=== PATIENT | female | born 1960 | race Caucasian/White ===

== ENCOUNTER 2021-06-13 09:17 | Emergency (ER) | payer BC ==
[2021-06-13] MEDS ORDERED: HYDROmorphone 1 MG/ML Syringe IM ONE (09:56)
--- NOTE | 2021-06-13 10:02 | EDM.PDOC ---
ED HPI GENERAL MEDICAL PROBLEM - General Chief Complaint: Lower Extremity Injury/Pain Stated Complaint: Fall,Knee pain Time Seen by Provider: 06/13/21 09:40 Source of Information: Reports: Patient, Family History Limitations: Reports: No Limitations - History of Present Illness INITIAL COMMENTS - FREE TEXT/NARRATIVE: Patient slipped and fell getting out of the vehicle last night. unsure of how she fell, but hurt her right knee. Unable to get up. helped her and she attempted to stay for the holiday evening but pain was worse. Barely able to weight bear, used walked ( does not normally use) once got home. Took tylenol. swelling worse. no previous injury. no blood thinners, no other injury Onset Date: 06/12/21 Duration: Getting Worse - Related Data Allergies Allergy/AdvReac Type Severity Reaction Status Date / Time Sulfa (Sulfonamide Allergy Hives Verified 01/16/18 17:56 Antibiotics) Home Meds: Home Meds Acetaminophen [Tylenol Extra Strength] 1,000 mg PO TID PRN 02/20/15 [History] Aspirin 81 mg PO BRK 02/20/15 [History] Calcium Carb/Vit D3/Minerals [Calcium 600+D Plus Min] 1 each PO TID 02/20/15 [History] Cholecalciferol (Vitamin D3) [Vitamin D] 4,000 unit PO BID 02/20/15 [History] Cyanocobalamin (Vitamin B-12) [B-12] 1,000 mcg PO DAILY 02/20/15 [History] Ferrous Sulfate 325 mg PO BIDMEALS 02/20/15 [History] Folic Acid 2 mg PO DAILY 02/20/15 [History] Metoprolol Succinate [Toprol XL] 50 mg PO DAILY 02/20/15 [History] Omeprazole [Prilosec] 20 mg PO DAILY 02/20/15 [History] Sertraline [Zoloft] 100 mg PO DAILY 02/20/15 [History] Vitamin B Complex [B Complex] 1 each PO DAILY 02/20/15 [History] tiZANidine [Zanaflex] 2 mg PO Q8HR PRN 01/16/18 [History] Hydrocodone/Acetaminophen [HYDROcodone-Acetaminophen 5-325 MG] 1 each PO Q4HR PRN #40 tab 06/13/21 [Rx] Past Medical History HEENT History: Reports: Other (See Below) Other HEENT History: wears glasses Cardiovascular History: Reports: Heart Murmur 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 Musculoskeletal History: Reports: Back Pain, Chronic, Fibromyalgia - Past Surgical History Endocrine Surgical History: Reports: Thyroidectomy Social & Family History - Caffeine Use Caffeine Use: Reports: Soda Other Caffeine Use: 2 bottles per day Review of Systems - Review of Systems Review Of Systems: See Below Constitutional: Reports: No Symptoms Eyes: Reports: No Symptoms Ears: Reports: No Symptoms Nose: Reports: No Symptoms Mouth/Throat: Reports: No Symptoms Respiratory: Reports: No Symptoms Cardiovascular: Reports: No Symptoms GI/Abdominal: Reports: No Symptoms Genitourinary: Reports: No Symptoms Musculoskeletal: Reports: Joint Swelling (right knee) Skin: Reports: No Symptoms Neurological: Reports: No Symptoms Psychiatric: Reports: No Symptoms ED EXAM, GENERAL - Physical Exam Exam: See Below Exam Limited By: No Limitations General Appearance: Alert, WD/WN, Moderate Distress Eye Exam: Bilateral Eye: EOMI, Normal Inspection Ears: Normal External Exam Nose: Normal Inspection Throat/Mouth: Normal Inspection Head: Atraumatic Neck: Normal Inspection Respiratory/Chest: No Respiratory Distress, Lungs Clear, Chest Non-Tender Cardiovascular: Normal Peripheral Pulses, Regular Rate, Rhythm GI/Abdominal: Normal Bowel Sounds, Soft Extremities: Joint Swelling (rigth knee, difficult exam, large joint effusion. no pain to palpation, able to get to full extension, flexion limited to 45 degrees due to swelling and body habitus. Difficult to test ligaments. ) Neurological: Alert, Oriented Course - Orders/Labs/Meds Orders: Active Orders 24 hr Category Date Time Status Knee 3V Rt [CR] Stat Exams 06/13/21 09:28 Taken CHICO Bandage [Elastic Wrap] [OM.PC] Routine Oth 06/13/21 09:56 Ordered Meds: Medications Discontinued Medications Generic Name Dose Route Start Last Admin Trade Name Freq PRN Reason Stop Dose Admin Hydromorphone HCl 1 mg 06/13/21 09:56 06/13/21 10:07 Hydromorphone 1 Mg/Ml Syringe IM 06/13/21 09:57 1 mg ONETIME ONE Administration - Radiology Interpretation Free Text/Narrative:: x-ray with patellofemoral djd, no acute fracture, , joint effusion noted. preliminary read only - Re-Assessments/Exams Free Text/Narrative Re-Assessment/Exam: 06/13/21 10:02 dilaudid Im and x-ray large joint effusion, difficult exam. 06/13/21 11:19 pain better controlled. discussed ACL, other ligament tear, nondisplaced tibial plateau fracture as possible diagnosis. Needs MRi when swelling is down. conservative care until then with ice, chico wrap, bracing, minimal weight bearing and walker that she has at home. will give tramadol as that is all i have in the ER and a prescription for hydrocodone to be filled tomorrow. Will have her off work until follow up. follow up with PCP for scheduling of the MRI Departure - Departure Time of Disposition: 11:02 Disposition: Home, Self-Care 01 Condition: Fair Clinical Impression: Knee effusion, right, Knee derangement - Discharge Information Prescriptions: Hydrocodone/Acetaminophen [HYDROcodone-Acetaminophen 5-325 MG] 1 each PO Q4HR PRN #40 tab PRN Reason: Pain Instructions: How to Use a Knee Immobilizer, [id number], Knee Effusion, [id number], Combined Knee Ligament Sprain, Anterior Cruciate Ligament Tear, Nondisplaced Tibial Plateau Fracture Forms: ED Department Discharge, ED Return to Work/School Form Additional Instructions: You have swelling in the knee with concern for ligament tear or nondisplaced tibial plateau fracture. You need to remain as non weight bearing as possible. Use the brace to keep from bending the knee as the knee may buckle otherwise. Ice the area as much as possible. Use an chico wrap from mid thigh to the ankle and elevation to help with getting the swelling out. Use the walker at all times. You are given information of several conditions for your eduction, an MRI is necessary for diagnosis of these conditions. diagnosis is joint effusion with the possibility of ligament injury to include the acl and possibility of a nondisplaced tibial plateau fracture. Any of these conditions are acutely treated with ice, rest, elevation, minimal to non weight bearing, getting rid of swelling and minimizing movement of the joint. Use the tramadol every 4-6 hours as needed for pain and fill the hydrocodone tomorrow and use in place of that. Make appointment for close follow up with PCP and scheduling of MRI when the knee is less swollen. remember that pain medication causes constipation, take a stool softener - My Orders Last 24 Hours: My Active Orders 06/13/21 09:28 Knee 3V Rt [CR] Stat 06/13/21 09:56 CHICO Bandage [Elastic Wrap] [OM.PC] Routine - Assessment/Plan Last 24 Hours: My Active Orders 06/13/21 09:28 Knee 3V Rt [CR] Stat 06/13/21 09:56 CHICO Bandage [Elastic Wrap] [OM.PC] Routine
[2021-06-13 15:20] VITALS: BP 118/74; PULSE 66
== END 2021-06-13 11:30 | disposition home or self-care (01) ==
LOC: LL.ED 09:17
DX: M25.461 Effusion, right knee (principal); M23.91 Unspecified internal derangement of right knee; Z88.2 Allergy status to sulfonamides; Z90.710 Acquired absence of both cervix and uterus; Z79.899 Other long term (current) drug therapy
CPT/HCPCS: 73562; 96372; 99283; J1170